=== PATIENT | female | born 1930 | race African-American/Black ===

== ENCOUNTER 2019-04-18 16:50 | Emergency (ER) | payer MEDICARE, MEDICAID ==
[~2019-04-18] VITALS: Ht 165.1 cm; Wt 79.0 kg
[~2019-04-18 16:50] MED LIST: AMLODIPINE; ASPIRIN; ATROVASTATIN; HCTZ; METF-414; TRAMADOL
[2019-04-18] MEDS ORDERED: SITA100T11 PO (17:11)
[2019-04-18] MEDS ORDERED: LOSA100T32 PO (17:11)
[2019-04-18] MEDS ORDERED: HYDRALAZINE HCL 50MG TABLET PO ONE (17:45)
[2019-04-18 18:16] LABS: BASOPHILS % 0.4 % (0.0-2.0); EOSINOPHILS % 1.9 % (0.0-5.0); HEMOGLOBIN. 11.2 g/dL (12.0-16.0); LYMPHOCYTES % 35.4 % (20.0-50.0); MEAN CORPUSCULAR HEMOGLOBIN 30.4 pg (28.0-32.0); MEAN CORPUSCULAR VOLUME 94.7 fL (81.0-99.0); MEAN PLATELET VOLUME 9.7 fl (7.4-10.4); MONOCYTES % 8.9 % (2.0-8.0); NEUTROPHILS % 53.4 % (40.0-76.0); PLATELET 138 x1000/uL (130-400); RED BLOOD CELL COUNT 3.69 mill/uL (4.2-5.4); RED CELL DISTRIBUTION WIDTH 16.3 % (11.6-14.6)
[2019-04-18 18:20] LABS: CHLORIDE 113 mEq/L (98-107)
[2019-04-18 19:01] VITALS: BP 179/69
== END 2019-04-18 19:01 | disposition home or self-care (01) ==
LOC: ER 17:03
DX: E11.22 Type 2 diabetes mellitus with diabetic chronic kidney disease (principal); I12.0 Hypertensive chronic kidney disease with stage 5 chronic kidney disease or end stage renal disease; N18.6 End stage renal disease; Z99.2 Dependence on renal dialysis; E78.00 Pure hypercholesterolemia, unspecified; Z79.84 Long term (current) use of oral hypoglycemic drugs; Z79.82 Long term (current) use of aspirin
CPT/HCPCS: 36415; 93005; 99284